=== PATIENT | female | born 1965 | race Caucasian/White ===

== ENCOUNTER 2022-02-19 19:32 | Inpatient (IN) | payer OTHER ==
[~2022-02-19] VITALS: Ht 172.7 cm; Wt 85.7 kg
[2022-02-19 21:01] LABS: HEMOGLOBIN 15.4 gm/dl (12.3-15.3); RED BLOOD COUNT 5.05 M/UL (4.00-5.10); WHITE BLOOD COUNT 4.1 K/UL (4.5-11.0)
[2022-02-19 21:33] LABS: BUN/CREATININE RATIO 16 (0-10)
[2022-02-20] MEDS ORDERED: ATORVASTATIN CA10 MG PO (10:33)
[2022-02-20] MEDS ORDERED: GABAPENTIN600 MG PO (10:33)
[2022-02-20] MEDS ORDERED: HYDROCODON-ACE1 EAC4 PO (10:33)
[2022-02-20] MEDS ORDERED: LISINOPRIL20 MG PO (10:34)
[2022-02-21 01:52] LABS: RED BLOOD COUNT 4.66 M/UL (4.00-5.10)
[2022-02-21 01:55] LABS: WHITE BLOOD COUNT 5.5 K/UL (4.5-11.0)
[2022-02-21 02:25] LABS: BUN/CREATININE RATIO 26 (0-10)
[2022-02-22 02:54] LABS: BUN/CREATININE RATIO 26 (0-10)
--- NOTE | 2022-02-23 07:26 | NUR ---
PATIENT REFUSED BED ALARM.
[2022-02-23] MEDS ORDERED: ATORVASTATIN CA20 MG PO (08:49)
[2022-02-23] MEDS ORDERED: ASPIRIN EC81 MG PO (08:49)
[2022-02-23] MEDS ORDERED: CLOPIDOGREL75 MG PO (08:49)
[2022-02-23] MEDS ORDERED: HYGROTON TAB 2525 MG PO (08:49)
[2022-02-23] MEDS ORDERED: SENNA LAX8.6 MG PO (08:50)
[2022-02-23] MEDS ORDERED: PROTONIX 40 MG40 M1 PO (08:50)
== END 2022-02-23 18:10 | disposition home or self-care (01) | DRG 65 ==
LOC: ER1 19:32 → CDU 23:00 → PROG CARE 23:00 → MED SURG 4 02-21 13:24
PROVIDERS: Emergency Medicine; ADMIT Internal Medicine
PROC: B24BZZZ Ultrasonography of Heart with Aorta (ICD-10-PCS; principal; 2022-02-22)
DX: I63.49 Cerebral infarction due to embolism of other cerebral artery (principal); G81.91 Hemiplegia, unspecified affecting right dominant side; Z20.822 Contact with and (suspected) exposure to COVID-19; R47.1 Dysarthria and anarthria; I10 Essential (primary) hypertension; R29.700 NIHSS score 0; G89.29 Other chronic pain; M48.02 Spinal stenosis, cervical region; E87.6 Hypokalemia; R47.81 Slurred speech; D72.819 Decreased white blood cell count, unspecified; E78.5 Hyperlipidemia, unspecified; R29.810 Facial weakness; F17.210 Nicotine dependence, cigarettes, uncomplicated; Z86.718 Personal history of other venous thrombosis and embolism; Z79.01 Long term (current) use of anticoagulants; Z79.82 Long term (current) use of aspirin
CPT/HCPCS: ECHO; 0240U; 36415; 70496; 70551; 71045; 72141; 80048; 80053; 80061; 82550; 82553; 83036; 83735; 84132; 84484; 85025; 85027; 92507; 92526; 92610; 93005; 93270; 93306; 93880; 94640; 94664; 94760; 96374; 97116; 97116-GP-CQ; 97161; 97166; 97530-GP-CQ; 97535; 99285; G0378; J1100; Q9967

== ENCOUNTER 2022-03-29 18:56 | Emergency (ER) | payer OTHER ==
[~2022-03-29 18:56] MED LIST: ASPIRIN EC81 MG PO; ATORVASTATIN CA10 MG PO; ATORVASTATIN CA20 MG PO; CLOPIDOGREL75 MG PO; GABAPENTIN600 MG PO; HYDROCODON-ACE1 EAC4 PO; HYGROTON TAB 2525 MG PO; LISINOPRIL20 MG PO; PROTONIX 40 MG40 M1 PO; SENNA LAX8.6 MG PO
[2022-03-29 20:03] LABS: HEMOGLOBIN 14.1 gm/dl (12.3-15.3); RED BLOOD COUNT 4.66 M/UL (4.00-5.10)
[2022-03-29 20:26] LABS: BUN/CREATININE RATIO 25 (0-10)
== END 2022-03-30 06:47 | disposition home or self-care (01) ==
LOC: ER1 18:56
PROVIDERS: Physician Assistant
DX: I95.9 Hypotension, unspecified (principal); R00.1 Bradycardia, unspecified; I10 Essential (primary) hypertension; Z88.2 Allergy status to sulfonamides
CPT/HCPCS: 70450; 71045; 80053; 82550; 82553; 83880; 84484; 85025; 85610; 85730; 93005; 99285

== ENCOUNTER → 2022-06-15 | Outpatient (CLI) | payer OTHER | LOC: EMI 06-08 13:00 | DX: M48.061 Spinal stenosis, lumbar region without neurogenic claudication (principal); M47.816 Spondylosis without myelopathy or radiculopathy, lumbar region | CPT/HCPCS: 72148 ==